=== PATIENT | female | born 1995 | race African-American/Black ===

== ENCOUNTER 2019-03-07 09:04 | Emergency (ER) | payer MEDICAID ==
[~2019-03-07] VITALS: Ht 157.5 cm; Wt 52.0 kg
[2019-03-07] MEDS ORDERED: SODIUM CHLORIDE 0.9% 1,000 ML IV ONE (09:30)
[2019-03-07] MEDS ORDERED: KETOROLAC 30MG/ML VIAL IV STA (09:30)
[2019-03-07 10:17] LABS: CLARITY URINE TURBID (CLEAR); COLOR URINE RED (YELLOW); HEMATOCRIT. 38.6 % (36.0-48.0); HEMOGLOBIN. 12.7 g/dL (12.0-16.0); KETONES URINE 4+ (NEGATIVE); LEUKOCYTE ESTERASE URINE 2+ (NEGATIVE); MEAN CORPUSCULAR HEMOGLOBIN 29.8 pg (28.0-32.0); MEAN CORPUSCULAR VOLUME 90.6 fL (81.0-99.0); MEAN PLATELET VOLUME 8.6 fl (7.4-10.4); NITRITE URINE POSITIVE (NEGATIVE); OCCULT BLOOD URINE 3+ (NEGATIVE); PH URINE 5.5 (4.5-8.0); PLATELET 182 x1000/uL (130-400); PROTEIN URINE 3+ (NEGATIVE); RED BLOOD CELL COUNT 4.26 mill/uL (4.2-5.4); RED CELL DISTRIBUTION WIDTH 15.2 % (11.6-14.6); SPECIFIC GRAVITY URINE 1.039 (1.005-1.030)
[2019-03-07 10:22] LABS: CHLORIDE 104 mEq/L (98-107)
[2019-03-07 10:26] LABS: HCG SCREEN NEGATIVE
[2019-03-07 10:41] LABS: PLATELET ESTIMATE NORMAL
[2019-03-07] MEDS ORDERED: AMOXICILLIN/POTASSIUM CLAVULANATE 875/125MG TAB PO ONE (11:15)
[2019-03-07 11:34] VITALS: BP 121/82
== END 2019-03-07 11:40 | disposition home or self-care (01) ==
LOC: ER 09:04
DX: N39.0 Urinary tract infection, site not specified (principal); J02.0 Streptococcal pharyngitis; N93.9 Abnormal uterine and vaginal bleeding, unspecified; R20.0 Anesthesia of skin; F12.90 Cannabis use, unspecified, uncomplicated
CPT/HCPCS: 36415; 80053; 81003; 81025; 83690; 84703; 85025; 86850; 86900; 86901; 87070; 87086; 87430; 96374; 99283; J1885; J7030